=== PATIENT | female | born 1960 | race African-American/Black ===

== ENCOUNTER 2021-07-20 08:46 | Inpatient (IN) | payer OTHER ==
[~2021-07-20] VITALS: Ht 167.6 cm; Wt 72.6 kg
[2021-07-20] MEDS ORDERED: ACETAMINOPHEN 325MG TABLET PO ONE (09:15)
[2021-07-20] MEDS ORDERED: SODIUM CHLORIDE 0.9% 1,000 ML IV ONE (09:15)
[2021-07-20 09:43] LABS: HEMATOCRIT. 42.2 % (36.0-48.0); HEMOGLOBIN. 13.9 g/dL (12.0-16.0); MEAN CORPUSCULAR HEMOGLOBIN 28.3 pg (28.0-32.0); MEAN CORPUSCULAR VOLUME 85.7 fL (81.0-99.0); MEAN PLATELET VOLUME 9.3 fl (7.4-10.4); PLATELET 216 x1000/uL (130-400); RED BLOOD CELL COUNT 4.92 mill/uL (4.2-5.4)
[2021-07-20 09:51] LABS: CHLORIDE 106 mEq/L (98-107)
[2021-07-20 10:16] LABS: PLATELET ESTIMATE NORMAL
[2021-07-20 11:23] LABS: CLARITY URINE CLOUDY (CLEAR); COLOR URINE DARK YELLOW (YELLOW); KETONES URINE 1+ (NEGATIVE); LEUKOCYTE ESTERASE URINE 2+ (NEGATIVE); NITRITE URINE NEGATIVE (NEGATIVE); OCCULT BLOOD URINE NEGATIVE (NEGATIVE); PH URINE 5.5 (4.5-8.0); PROTEIN URINE 2+ (NEGATIVE); SPECIFIC GRAVITY URINE 1.025 (1.005-1.030)
[2021-07-20] MEDS ORDERED: POTASSIUM CHLORIDE 20MEQ TABLET SR PO ONE (11:45)
[2021-07-20] MEDS ORDERED: CEFTRIAXONE 1 G PREMIX 50 ML IV ONE (13:00)
[2021-07-20] MEDS ORDERED: ADENOSINE 3 MG/ML 2ML VIAL IV ONE ×2 (13:45→14:41)
[2021-07-20] MEDS ORDERED: DOCUSATE SODIUM 100MG CAPSULE PO PRN (17:30)
[2021-07-20] MEDS ORDERED: KCL 10MEQ/50ML PREMIX 50 ML IV NR (17:30)
[2021-07-20] MEDS ORDERED: CLONIDINE 0.1MG TABLET PO PRN (17:30)
[2021-07-20] MEDS ORDERED: ONDANSETRON HCL 4MG/2ML INJ IV PRN (17:30)
[2021-07-20] MEDS ORDERED: GUAIFENESIN 200MG/10ML SUGAR FREE UDC PO PRN (17:30)
[2021-07-20] MEDS ORDERED: ACETAMINOPHEN 325MG TABLET PO PRN (17:30)
[2021-07-20] MEDS ORDERED: HYDROCODONE/ACETAMINOPHEN 5/325MG TABLET PO PRN (17:30)
[2021-07-20] MEDS ORDERED: NALOXONE HCL 0.4MG/ML VIAL IV PRN (17:45)
[2021-07-20] MEDS ORDERED: CEFTRIAXONE 1 G PREMIX 50 ML IV NR (18:00)
[2021-07-20] MEDS ORDERED: ENOXAPARIN 40MG/0.4ML SYR SUBCUT SCH (18:00)
[2021-07-20 23:00] VITALS: BP 124/62
[2021-07-21] MEDS ORDERED: *PATIENT'S OWN MEDICATION STORAGE XX SCH (04:15)
[2021-07-21] MEDS ORDERED: TRIA1TAB92 PO (04:59)
[2021-07-21] MEDS ORDERED: HYDR-4001 PO (04:59)
[2021-07-21] MEDS ORDERED: DULO30CA52 PO (04:59)
[2021-07-21] MEDS ORDERED: ASPI-1497 PO (04:59)
[2021-07-21] MEDS ORDERED: CHOL400D7 PO (04:59)
[2021-07-21] MEDS ORDERED: ATEN-42 PO (04:59)
[2021-07-21] MEDS ORDERED: POTA-189 MT (04:59)
[2021-07-21] MEDS ORDERED: MELO-106 PO (05:02)
[2021-07-21] MEDS ORDERED: GABA-532 PO (05:02)
[2021-07-21] MEDS ORDERED: METF-873 PO (05:02)
[2021-07-21 07:21] LABS: HEMATOCRIT. 37.4 % (36.0-48.0); HEMOGLOBIN. 12.3 g/dL (12.0-16.0); MEAN CORPUSCULAR HEMOGLOBIN 28.6 pg (28.0-32.0); MEAN CORPUSCULAR VOLUME 86.7 fL (81.0-99.0); MEAN PLATELET VOLUME 9.6 fl (7.4-10.4); PLATELET 178 x1000/uL (130-400); RED BLOOD CELL COUNT 4.31 mill/uL (4.2-5.4)
[2021-07-21 08:00] VITALS: BP 161/88
[2021-07-21 08:08] LABS: CHLORIDE 112 mEq/L (98-107)
[2021-07-21 08:16] LABS: LDL CHOLESTEROL 74 mg/dL (5-100)
[2021-07-21 08:19] LABS: HDL CHOLESTEROL 29 mg/dL (40-59)
[2021-07-21] MEDS ORDERED: ASPIRIN 81MG EC TABLET PO SCH (09:00)
[2021-07-21 14:09] LABS: PLATELET ESTIMATE NORMAL
[2021-07-21] MEDS ORDERED: CEFTRIAXONE 1,000 MG in DEXTROSE 5% WATER 50 ML IV SCH (15:00)
== END 2021-07-21 14:06 | disposition left against medical advice (07) | DRG 690 ==
LOC: ER 08:46 → EDBEDREQTM 14:53 → EDBEDREQ 14:53 → ENRESERV 21:34 → 8WST 22:45
PROVIDERS: ADMIT Hospitalist; ATTEND Hospitalist
DX: N39.0 Urinary tract infection, site not specified (principal); K56.7 Ileus, unspecified; N17.9 Acute kidney failure, unspecified; E11.22 Type 2 diabetes mellitus with diabetic chronic kidney disease; Z20.822 Contact with and (suspected) exposure to COVID-19; I12.9 Hypertensive chronic kidney disease with stage 1 through stage 4 chronic kidney disease, or unspecified chronic kidney disease; I49.3 Ventricular premature depolarization; M79.7 Fibromyalgia; N18.9 Chronic kidney disease, unspecified; Z85.038 Personal history of other malignant neoplasm of large intestine; Z90.49 Acquired absence of other specified parts of digestive tract
CPT/HCPCS: 36415; 71045; 74018; 74176; 76700; 80053; 80061; 81003; 82962; 83880; 84484; 85025; 87426; 93005; 93970; 99291; J0153; J0696; J1650; J2405; J3480; J7060